=== PATIENT | male | born 1940 | race Caucasian/White ===

== ENCOUNTER 2019-09-06 11:00 | Emergency (ER) | payer MEDICARE, OTHER ==
[~2019-09-06 11:00] MED LIST: Aspirin 81 MG Tab.Chew PO ONE
[2019-09-06] MEDS ORDERED: Aspirin 81 MG Tab.Chew ONE (11:04)
[2019-09-06] MEDS ORDERED: Sodium Chloride 0.9% 10 ML Syringe FLUSH PRN (11:23)
--- NOTE | 2019-09-06 11:35 | EDM.PDOC ---
ED HPI GENERAL MEDICAL PROBLEM - General Chief Complaint: Cardiovascular Problem Stated Complaint: CHEST PAIN Time Seen by Provider: 09/06/19 11:27 Source of Information: Reports: Patient History Limitations: Reports: No Limitations - History of Present Illness INITIAL COMMENTS - FREE TEXT/NARRATIVE: Patient is an 79-year-old gentleman who presents to the emergency department via private vehicle with a complaint of chest pain. Patient states at approximately 330 this morning, he woke with discomfort in chest and upper abdomen. Patient described discomfort as an ache, midsternal and epigastric region. Patient states that the pain has not resolved. However, pain has gradually improved and is almost resolved upon presentation to the ER. Patient states his last meal was supper at approximately 1930 last night. Patient states that he has never had a cardiac catheterization or previous cardiac history. Patient does have hypertension, COPD, and occasional GERD. Patient denies fever, cough or upper respiratory symptoms, nausea, vomiting, diarrhea, headache, shortness of breath out of usual, lower extremity edema, or out of country travel. Onset: Today, Sudden Onset Time: 03:30 Duration: Hour(s): Location: Reports: Chest Quality: Reports: Ache Severity: Mild Improves with: Reports: Other (Spontaneously improving) Context: Reports: Other (While at rest) Associated Symptoms: Reports: No Other Symptoms. 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 Middle Chest Pain Score (Numeric/FACES): 6 - Related Data Allergies Allergy/AdvReac Type Severity Reaction Status Date / Time No Known Allergies Allergy Verified 09/06/19 11:34 Home Meds: Home Meds Aspirin [Adult Low Dose Aspirin EC] 81 mg PO DAILY 04/04/14 [History] Fish Oil/[place]-3 Fatty Acids [Fish Oil] 1 each PO DAILY 04/04/14 [History] Ibuprofen [Motrin Ib] 200 mg PO Q4H PRN 04/04/14 [History] Losartan [Cozaar] 50 mg PO DAILY 04/04/14 [History] Multivit with Minerals/Lutein [Vision Plus Lutein Vitamin] 1 each PO DAILY 04/04 [History] Multivitamin with Minerals [Multiple Vitamin] 1 tab PO DAILY 04/04/14 [History] Albuterol/Ipratropium [DuoNeb 3.0-0.5 MG/3 ML] 3 ml INH Q6H PRN 09/06/19 [ History] Furosemide 20 mg PO DAILY 09/06/19 [History] Omeprazole 20 mg PO DAILY 09/06/19 [History] ED ROS GENERAL - Review of Systems Review Of Systems: Comprehensive ROS is negative, except as noted in HPI. Constitutional: Reports: No Symptoms HEENT: Reports: No Symptoms Respiratory: Reports: No Symptoms Cardiovascular: Reports: Chest Pain Endocrine: Reports: No Symptoms GI/Abdominal: Reports: No Symptoms : Reports: No Symptoms Musculoskeletal: Reports: No Symptoms Skin: Reports: No Symptoms Neurological: Reports: No Symptoms Psychiatric: Reports: No Symptoms Hematologic/Lymphatic: Reports: No Symptoms Immunologic: Reports: No Symptoms ED EXAM, GENERAL - Physical Exam Exam: See Below Exam Limited By: No Limitations General Appearance: Alert, WD/WN, No Apparent Distress Eye Exam: Bilateral Eye: Normal Inspection Nose: Normal Inspection, Normal Mucosa, No Blood Throat/Mouth: Normal Inspection, Normal Oropharynx, No Airway Compromise Head: Atraumatic, Normocephalic Neck: Normal Inspection, Supple, Non-Tender Respiratory/Chest: No Respiratory Distress, Decreased Breath Sounds (Bibasilar) , Wheezing (Minimal end expiratory) Cardiovascular: Normal Peripheral Pulses, Regular Rate, Rhythm, No Murmur GI/Abdominal: Normal Bowel Sounds, Soft, Tender (Epigastric) Back Exam: Normal Inspection. No: CVA Tenderness (L), CVA Tenderness (R) Extremities: Normal Inspection, No Pedal Edema, Normal Capillary Refill Neurological: Alert, Oriented, CN II-XII Intact, Normal Cognition Psychiatric: Normal Affect, Normal Mood Skin Exam: Warm, Dry, Intact, Normal Color, No Rash Lymphatic: No Adenopathy EKG INTERPRETATION EKG Date: 09/06/19 Time: 11:00 Rhythm: NSR Rate (Beats/Min): 94 [place]: Normal P-Wave: Present QRS: Normal ST-T: Normal QT: Normal Comparison: NA - No Prior EKG Course - Vital Signs Last Recorded V/S: Last Vital Signs Temp 98.0 F 09/06/19 11:05 Pulse 98 09/06/19 11:05 Resp 18 09/06/19 11:05 BP 141/55 H 09/06/19 11:05 Pulse Ox 87 L 09/06/19 11:05 - Orders/Labs/Meds Orders: Active Orders 24 hr Category Date Time Status EKG Documentation Completion [RC] ASDIRECTED Care 09/06/19 11:24 Active Oxygen Therapy Adult [Oxygen Therapy] [RC] ASDIRECTED Care 09/06/19 11:47 Ordered Peripheral IV Care [RC] . DIRECTED Care 09/06/19 11:24 Active Aspirin Med 09/07/19 08:00 Active 162 mg PO WITHBREAKFAST Sodium Chloride 0.9% [Saline Flush] Med 09/06/19 11:23 Active 10 ml FLUSH Q8HR PRN Peripheral IV Insertion Adult [OM.PC] Routine Oth 09/06/19 11:23 Ordered EKG 12 Lead [EK] Routine Ther 09/06/19 11:23 Ordered Medication Orders Aspirin (Aspirin) 162 mg PO WITHBREAKFAST [place] Sodium Chloride (Saline Flush) 10 ml FLUSH Q8HR PRN PRN Reason: keep vein open Labs: Laboratory Tests 09/06/19 09/06/19 09/06/19 Range/Units 11:20 11:20 11:20 WBC 10.00 (5.00-10.00) 10^3/uL RBC 4.62 (4.50-6.00) 10^6/uL Hgb 13.8 (13.0-17.0) g/dL Hct 41.3 (40.0-52.0) % MCV 89.4 (82.0-92.0) fL MCH 29.9 (27.0-31.0) pg MCHC 33.4 (32.0-36.0) g/dL RDW 12.8 (11.5-14.5) % Plt Count 136 L (150-400) 10^3/uL MPV 9.2 (7.4-10.4) fL Immature Gran % (Auto) 0.1 (0.0-5.0) % Neut % (Auto) 77.3 H (50.0-70.0) % Lymph % (Auto) 12.2 L (20.0-40.0) % [place] % (Auto) 10.1 H (2.0-8.0) % Eos % (Auto) 0.1 L (1.0-3.0) % Baso % (Auto) 0.2 (0.0-1.0) % Immature Gran # (Auto) 0.01 (0.00-0.50) 10^3/uL Neut # (Auto) 7.73 H (2.50-7.00) 10^3/uL Lymph # (Auto) 1.22 (1.00-4.00) 10^3/uL [place] # (Auto) 1.01 H (0.10-0.80) 10^3/uL Eos # (Auto) 0.01 L (0.10-0.30) 10^3/uL Baso # (Auto) 0.02 (0.00-0.10) 10^3/uL D-Dimer, Quantitative 148 (<400) ng/mL Sodium 131 L (136-145) mmol/L Potassium 4.2 (3.3-5.3) mmol/L Chloride 93 L (98-115) mmol/L Carbon Dioxide 31.0 (21.0-32.0) mmol/L Anion Gap 11.2 (5-15) mmol/L BUN 11 (6-25) mg/dL Creatinine 0.88 (0.51-1.17) mg/dL Est Cr Clr Drug Dosing 64.77 mL/min Estimated GFR (MDRD) > 60 mL/min Glucose 119 H (75 - 99) mg/dL Calcium 9.1 (8.7-10.3) mg/dL Total Bilirubin 1.2 H (0.2-1.0) mg/dL AST 35 (15-37) U/L ALT 35 (12-78) U/L Alkaline Phosphatase 129 H (46-116) IU/L Troponin I 0.04 (0.00-0.070) ng/mL Total Protein 6.9 (6.4-8.2) g/dL Albumin 3.30 (3.00-4.80) g/dL Lipase 88 (73-393) U/L Meds: Medications Generic Name Dose Route Start Last Admin Trade Name Freq PRN Reason Stop Dose Admin Aspirin 162 mg 09/07/19 08:00 Aspirin PO WITHBREAKFAST [place] Sodium Chloride 10 ml 09/06/19 11:23 Saline Flush FLUSH Q8HR PRN keep vein open Discontinued Medications Generic Name Dose Route Start Last Admin Trade Name Freq PRN Reason Stop Dose Admin Aspirin Confirm 09/06/19 11:04 Aspirin Administered 09/06/19 11:05 Dose 162 mg .ROUTE .K-MED ONE - Radiology Interpretation Free Text/Narrative:: Chest x-ray shows cardiomegaly without acute cardiopulmonary process - Re-Assessments/Exams Free Text/Narrative Re-Assessment/Exam: 09/06/19 12:02 Patient afebrile, vital signs stable, chest pain has resolved. Patient informed me that he did take a omeprazole just prior to presentation to the ER. All lab work, chest x-ray, and EKG are normal. Discussed case with Gee Ferraro. Patient will follow-up at [facility] in 1-2 days. Departure - Departure Time of Disposition: 12:03 Disposition: Home, Self-Care 01 Condition: Good Clinical Impression: Atypical chest pain Gastroesophageal reflux disease Qualifiers: Esophagitis presence: esophagitis presence not specified Qualified Code(s): K21.9 - Gastro-esophageal reflux disease without esophagitis Instructions: Nonspecific Chest Pain, [id number], Food Choices for Gastroesophageal Reflux Disease, Adult, [id number], Gastroesophageal Reflux Disease, Adult, [id number] Referrals: Ivelisse Gomez PA-C [Primary Care Provider] - Forms: ED Department Discharge Additional Instructions: Follow-up at [facility] in next 1-2 days. Return to emergency department sooner if symptoms continue or worsen. Take omeprazole as directed. Sepsis Event Note - Focused Exam Vital Signs: Vital Signs Temp Pulse Resp BP Pulse Ox 09/06/19 11:05 98.0 F 98 18 141/55 H 87 L Date Exam was Performed: 09/06/19 Time Exam was Performed: 12:02 - My Orders Last 24 Hours: My Active Orders 09/06/19 11:23 Sodium Chloride 0.9% [Saline Flush] 10 ml FLUSH Q8HR PRN Peripheral IV Insertion Adult [OM.PC] Routine EKG 12 Lead [EK] Routine 09/06/19 11:24 EKG Documentation Completion [RC] ASDIRECTED Peripheral IV Care [RC] . DIRECTED 09/06/19 11:47 Oxygen Therapy Adult [Oxygen Therapy] [RC] ASDIRECTED 09/07/19 08:00 Aspirin 162 mg PO WITHBREAKFAST - Assessment/Plan Last 24 Hours: My Active Orders 09/06/19 11:23 Sodium Chloride 0.9% [Saline Flush] 10 ml FLUSH Q8HR PRN Peripheral IV Insertion Adult [OM.PC] Routine EKG 12 Lead [EK] Routine 09/06/19 11:24 EKG Documentation Completion [RC] ASDIRECTED Peripheral IV Care [RC] . DIRECTED 09/06/19 11:47 Oxygen Therapy Adult [Oxygen Therapy] [RC] ASDIRECTED 09/07/19 08:00 Aspirin 162 mg PO WITHBREAKFAST Assessment:: GERD Plan: Follow-up at [facility]
--- NOTE | 2019-09-06 11:51 | CR ---
[id number] RAD/RAD Chest PA or AP 1V EXAM: RAD Chest PA or AP 1V INDICATION: CHEST PAIN. COMPARISON: None. DISCUSSION: Cardiomediastinal silhouette is borderline enlarged. No infiltrate, effusion, pneumothorax, or edema. Pulmonary hyperinflation. Bibasilar subsegmental atelectasis and/or scarring. IMPRESSION: No acute cardiopulmonary abnormality. Ruddy Herman DO 09/06/19 [id number] Thank you for allowing us to participate in the care of your patient.
[2019-09-06 11:55] LABS: ANION GAP 11.2 mmol/L (5-15); CHLORIDE,CL 93 mmol/L (98-115); SODIUM,NA 131 mmol/L (136-145)
[2019-09-07] MEDS ORDERED: Aspirin 81 MG Tab.Chew PO SCH (08:00)
== END 2019-09-06 12:10 | disposition home or self-care (01) ==
LOC: KA.ED 11:00
DX: K21.9 Gastro-esophageal reflux disease without esophagitis (principal); R07.89 Other chest pain; I10 Essential (primary) hypertension; J44.9 Chronic obstructive pulmonary disease, unspecified; Z79.899 Other long term (current) drug therapy; Z79.82 Long term (current) use of aspirin
CPT/HCPCS: 71045; 80053; 83690; 84484; 85025; 85379; 93005; 99284; 99285-25; A9270-GY

== ENCOUNTER 2021-06-10 10:10 | Inpatient (IN) | payer MEDICARE, OTHER ==
--- NOTE | 2021-06-10 12:18 | CR ---
[id number] RAD/RAD Chest PA And Lateral EXAM: RAD Chest PA And Lateral INDICATION: COUGH,FEVER. COMPARISON: September 2019. DISCUSSION/IMPRESSION: Right lung demonstrates patchy areas of parenchymal opacification in the paramediastinal region of the right upper lobe and at the lung base projecting over the costophrenic sulcus. Additionally, there is interstitial thickening in the right lung base. Findings were not seen on recent prior examination. If there are clinical signs of infection, findings would be consistent with pneumonia. Left lung is clear. Cardiomegaly and central vascular congestion. Suleiman Wilder MD 06/10/21 [id number] Thank you for allowing us to participate in the care of your patient.
[2021-06-10] MEDS ORDERED: Sodium Chloride 0.9% 1,000 ML IV ONE (12:37)
[2021-06-10] MEDS ORDERED: Sodium Chloride 0.9% 1,000 ML IV SCH (12:45)
[2021-06-10] MEDS: cefTRIAXone 2 GM Vial IVPUSH SCH (13:10)
[2021-06-10] MEDS: Sodium Chloride 0.9% 10 ML Syringe FLUSH PRN (13:16)
[2021-06-10] MEDS ORDERED: Albuterol 8 GM Inhaler INH PRN ×2 (15:58→21:48)
[2021-06-10] MEDS ORDERED: ALBUTEROL INH SCH (20:00)
[2021-06-10] MEDS ORDERED: IPRATROPIUM INH SCH (20:00)
[2021-06-10] MEDS: Triamcinolone Acetonide 0.1% Crm 15 GM Tube TOP SCH (21:20)
[2021-06-11] MEDS ORDERED: Menthol 7.6 MG Sugar Free Lozenge PO PRN (02:49)
[2021-06-11 07:57] LABS: ANION GAP 12.5 mmol/L (5-15); CHLORIDE,CL 100 mmol/L (98-107); SODIUM,NA 138 mmol/L (136-145)
[2021-06-11] MEDS: Fish Oil/Omega-3 Fatty Acids 1 Gm Cap PO SCH (08:04)
[2021-06-11] MEDS: OMEPRAZOLE 40 MG PO SCH (08:04)
[2021-06-11] MEDS: Aspirin 81 MG Tab.EC PO SCH (08:04)
[2021-06-11] MEDS: LOSARTAN 100 MG PO SCH (08:04)
[2021-06-11] MEDS: Triamcinolone Acetonide 0.1% Crm 15 GM Tube TOP SCH ×2 (08:05→20:11)
[2021-06-11] MEDS ORDERED: Potassium Chloride 20 MEQ Tab.ER PO ONE (09:23)
[2021-06-11] MEDS ORDERED: Sodium Chloride 0.9% 1,000 ML IV SCH (09:45)
[2021-06-11] MEDS: IPRATROPIUM INH SCH ×2 (10:33→20:11)
[2021-06-11] MEDS: ALBUTEROL INH SCH ×2 (10:33→20:11)
[2021-06-11] MEDS: methylPREDNISolone Sodium Succinate 125 MG/2 ML SDV IVPUSH SCH ×2 (10:33→17:13)
--- NOTE | 2021-06-11 10:33 | PCM.PN ---
- General Info Date of Service: 06/11/21 Functional Status: Reports: Pain Controlled, Tolerating Diet, Ambulating, Urinating, New Symptoms (diarrhea) - Review of Systems General: Reports: Weakness (improved from yesterday). Denies: Fever, Chills HEENT: Reports: No Symptoms Pulmonary: Reports: Shortness of Breath, Cough, Sputum, Wheezing (mild). Denies: Pleuritic Chest Pain, Hemoptysis Cardiovascular: Reports: Orthopnea, Edema Gastrointestinal: Reports: Diarrhea Genitourinary: Reports: No Symptoms Musculoskeletal: Reports: No Symptoms Skin: Reports: No Symptoms Neurological: Reports: No Symptoms Psychiatric: Reports: No Symptoms - Patient Data Vitals - Most Recent: Last Vital Signs Temp 97.1 F 06/11/21 06:19 Pulse 81 06/11/21 06:19 Resp 18 06/11/21 06:19 BP 117/64 06/11/21 06:19 Pulse Ox 92 L 06/11/21 06:19 Weight - Most Recent: 217 lb 4.8 oz I&O - Last 24 Hours: Intake & Output 06/10/21 06/11/21 06/11/21 22:59 06:59 14:59 Intake Total 200 1918 Balance 200 1918 Lab Results Last 24 Hours: Laboratory Results - last 24 hr 06/10/21 06/10/21 06/10/21 Range/Units 10:10 11:15 11:35 WBC (5.00-10.00) 10^3/uL RBC (4.50-6.00) 10^6/uL Hgb (13.0-17.0) g/dL Hct (40.0-52.0) % MCV (82.0-92.0) fL MCH (27.0-31.0) pg MCHC (32.0-36.0) g/dL RDW (11.5-14.5) % Plt Count (150-400) 10^3/uL MPV (7.4-10.4) fL Immature Gran % (Auto) (0.0-5.0) % Neut % (Auto) (50.0-70.0) % Lymph % (Auto) (20.0-40.0) % [place] % (Auto) (2.0-8.0) % Eos % (Auto) (1.0-3.0) % Baso % (Auto) (0.0-1.0) % Neut # (Auto) (2.50-7.00) 10^3/uL Lymph # (Auto) (1.00-4.00) 10^3/uL Lyon # (Auto) (0.10-0.80) 10^3/uL Eos # (Auto) (0.10-0.30) 10^3/uL Baso # (Auto) (0.00-0.10) 10^3/uL Immature Gran # (Auto) (0.00-0.50) 10^3/uL Sodium (136-145) mmol/L Potassium (3.5-5.1) mmol/L Chloride (98-107) mmol/L Carbon Dioxide (21.0-32.0) mmol/L Anion Gap (5-15) mmol/L BUN (7-18) mg/dL Creatinine (0.51-1.17) mg/dL Est Cr Clr Drug Dosing mL/min Estimated GFR (MDRD) mL/min Glucose (70-140) mg/dL Lactic Acid 1.3 (0.4-2.0) mmol/L Calcium (8.7-10.3) mg/dL Total Bilirubin (0.2-1.0) mg/dL AST (15-37) U/L ALT (14-63) U/L Alkaline Phosphatase (46-116) U/L C-Reactive Protein (0.0-0.9) mg/dL B-Natriuretic Peptide (0-100) pg/mL Total Protein (6.4-8.2) g/dL Albumin (3.40-5.00) g/dL Specimen Type Urincc Urine Color Reji H (YELLOW) Urine Appearance Clear (CLEAR) Urine pH 5.5 (5.0-9.0) Ur Specific [place] 1.020 (1.005-1.030) Urine Protein 100 H (NEGATIVE) mg/dL Urine Glucose (UA) Negative (NEGATIVE) mg/dL Urine Ketones Negative (NEGATIVE) mg/dL Urine Occult Blood Trace-intact H (NEGATIVE) Urine Nitrite Negative (NEGATIVE) Urine Bilirubin Moderate H (NEGATIVE) Urine Urobilinogen >=8.0 H (0.2-1.0) E.U./dL Ur Leukocyte Esterase Negative (NEGATIVE) Urine RBC Not seen (0-5) /HPF Urine WBC 0-5 (0-5) /HPF Ur Epithelial Cells Few /LPF Urine Bacteria Few (NONE TO FEW) /HPF SARS CoV-2 RNA Rapid YAMILET Negative (NEGATIVE) 06/10/21 06/11/21 06/11/21 Range/Units 11:35 07:00 07:00 WBC 10.75 H (5.00-10.00) 10^3/uL RBC 4.51 (4.50-6.00) 10^6/uL Hgb 13.7 (13.0-17.0) g/dL Hct 42.0 (40.0-52.0) % MCV 93.1 H D (82.0-92.0) fL MCH 30.4 (27.0-31.0) pg MCHC 32.6 (32.0-36.0) g/dL RDW 13.1 (11.5-14.5) % Plt Count 122 L (150-400) 10^3/uL MPV 9.6 (7.4-10.4) fL Immature Gran % (Auto) 0.5 (0.0-5.0) % Neut % (Auto) 82.3 H (50.0-70.0) % Lymph % (Auto) 9.0 L (20.0-40.0) % Lyon % (Auto) 7.8 (2.0-8.0) % Eos % (Auto) 0.3 L (1.0-3.0) % Baso % (Auto) 0.1 (0.0-1.0) % Neut # (Auto) 8.85 H (2.50-7.00) 10^3/uL Lymph # (Auto) 0.97 L (1.00-4.00) 10^3/uL Lyon # (Auto) 0.84 H (0.10-0.80) 10^3/uL Eos # (Auto) 0.03 L (0.10-0.30) 10^3/uL Baso # (Auto) 0.01 (0.00-0.10) 10^3/uL Immature Gran # (Auto) 0.05 (0.00-0.50) 10^3/uL Sodium 138 (136-145) mmol/L Potassium 3.3 L (3.5-5.1) mmol/L Chloride 100 (98-107) mmol/L Carbon Dioxide 28.8 (21.0-32.0) mmol/L Anion Gap 12.5 (5-15) mmol/L BUN 15 (7-18) mg/dL Creatinine 0.84 (0.51-1.17) mg/dL Est Cr Clr Drug Dosing 66.73 mL/min Estimated GFR (MDRD) > 60 mL/min Glucose 99 (70-140) mg/dL Lactic Acid (0.4-2.0) mmol/L Calcium 8.4 L (8.7-10.3) mg/dL Total Bilirubin 3.0 H (0.2-1.0) mg/dL AST 24 (15-37) U/L ALT 38 (14-63) U/L Alkaline Phosphatase 142 H (46-116) U/L C-Reactive Protein > 11.0 H > 11.0 H (0.0-0.9) mg/dL B-Natriuretic Peptide 165 H (0-100) pg/mL Total Protein 6.8 (6.4-8.2) g/dL Albumin 1.95 L (3.40-5.00) g/dL Specimen Type Urine Color (YELLOW) Urine Appearance (CLEAR) Urine pH (5.0-9.0) Ur Specific [place] (1.005-1.030) Urine Protein (NEGATIVE) mg/dL Urine Glucose (UA) (NEGATIVE) mg/dL Urine Ketones (NEGATIVE) mg/dL Urine Occult Blood (NEGATIVE) Urine Nitrite (NEGATIVE) Urine Bilirubin (NEGATIVE) Urine Urobilinogen (0.2-1.0) E.U./dL Ur Leukocyte Esterase (NEGATIVE) Urine RBC (0-5) /HPF Urine WBC (0-5) /HPF Ur Epithelial Cells /LPF Urine Bacteria (NONE TO FEW) /HPF SARS CoV-2 RNA Rapid YAMILET (NEGATIVE) Med Orders - Current: Current Medications Albuterol (Albuterol 8 Gm Inhaler) 0 gm INH Q4H PRN PRN Reason: Shortness of Breath Albuterol/Ipratropium (Albuterol/Ipratropium 3.0-0.5 Mg/3 Ml Neb Soln - Ptom) 3 ml INH BID [place] Aspirin (Aspirin 81 Mg Tab.Ec) 81 mg PO DAILY [facility] Last Admin: 06/11/21 08:04 Dose: 81 mg Documented by: Ceftriaxone Sodium (Ceftriaxone 2 Gm Vial) 2 gm IVPUSH Q24H [facility] Last Admin: 06/10/21 13:10 Dose: 2 gm Documented by: Fish Oil (Fish Oil/[place]-3 Fatty Acids 1 Gm Cap) 1 gm PO DAILY [facility] Last Admin: 06/11/21 08:04 Dose: 1 gm Documented by: Vancomycin HCl 1.25 gm/ Sodium (Chloride) 250 mls @ 125 mls/hr IV Q12H [facility] Last Admin: 06/10/21 23:32 Dose: 125 mls/hr Documented by: Sodium Chloride (Normal Saline) 1,000 mls @ 50 mls/hr IV ASDIRECTED [facility] Menthol (Menthol 7.6 Mg Sugar Free Lozenge) 1 kiko PO ASDIRECTED PRN PRN Reason: Cough Methylprednisolone Sodium Succinate (Methylprednisolone Sodium Succinate 125 Mg/2 Ml Sdv) 40 mg IVPUSH Q8H [facility] Losartan 100mg (Tablet - Ptom) 1 each PO DAILY [facility] Last Admin: 06/11/21 08:04 Dose: 1 each Documented by: Omeprazole 40mg (Capsule - Ptom) 1 each PO ACBREAKFAST [facility] Last Admin: 06/11/21 08:04 Dose: 1 each Documented by: Sodium Chloride (Sodium Chloride 0.9% 10 Ml Syringe) 10 ml FLUSH Q8HR PRN PRN Reason: keep vein open Last Admin: 06/10/21 13:16 Dose: 10 ml Documented by: Triamcinolone Acetonide (Triamcinolone Acetonide 0.1% Crm 15 Gm Tube) 0 gm TOP BID [facility] Last Admin: 06/11/21 08:05 Dose: 1 applic Documented by: Vancomycin HCl (Pharmacy To Dose - Vancomycin) 1 dose .XX ASDIRECTED [facility] Discontinued Medications Albuterol (Albuterol 8 Gm Inhaler) 0 gm INH Q6H PRN PRN Reason: Shortness of Breath Albuterol/Ipratropium (Albuterol/Ipratropium 3.0-0.5 Mg/3 Ml Neb Soln - Ptom) 3 ml INH BIDRT [facility] Last Admin: 06/10/21 19:35 Dose: 3 ml Documented by: Sodium Chloride (Normal Saline) 1,000 mls @ 999 mls/hr IV .BOLUS ONE Stop: 06/10/21 13:37 Last Infusion: 06/10/21 16:30 Dose: 100 mls/hr Documented by: Sodium Chloride (Normal Saline) 1,000 mls @ 100 mls/hr IV ASDIRECTED [place] Last Admin: 06/10/21 23:38 Dose: 100 mls/hr Documented by: Potassium Chloride (Potassium Chloride 20 Meq Tab.Er) 20 meq PO ONETIME ONE Stop: 06/11/21 09:24 - Exam Quality Assessment: Supplemental Oxygen General: Alert, Oriented, Cooperative, No Acute Distress HEENT: Pupils Equal, Pupils Reactive, Mucous Membr. Moist/[place] Neck: Supple, Trachea Midline Lungs: Decreased Breath Sounds, Wheezing. No: Crackles, Rhonchi Cardiovascular: Regular Rate, Regular Rhythm, No Murmurs GI/Abdominal Exam: Normal Bowel Sounds, Soft, Non-Tender, No Distention (Male) Exam: Deferred Back Exam: Normal Inspection, Full Range of Motion Extremities: Normal Inspection, Normal Range of Motion, Non-Tender, Normal Capillary Refill, Pedal Edema (+1 to +2 bilaterally ) Peripheral Pulses: 2+: Dorsalis Pedis (L), Dorsalis Pedis (R) Skin: Warm, Dry, Intact Neurological: No New Focal Deficit Psy/Mental Status: Alert, Normal Affect, Normal Mood - Patient Data Lab Results Last 24 hrs: Laboratory Results - last 24 hr 06/10/21 06/10/21 06/10/21 Range/Units 10:10 11:15 11:35 WBC (5.00-10.00) 10^3/uL RBC (4.50-6.00) 10^6/uL Hgb (13.0-17.0) g/dL Hct (40.0-52.0) % MCV (82.0-92.0) fL MCH (27.0-31.0) pg MCHC (32.0-36.0) g/dL RDW (11.5-14.5) % Plt Count (150-400) 10^3/uL MPV (7.4-10.4) fL Immature Gran % (Auto) (0.0-5.0) % Neut % (Auto) (50.0-70.0) % Lymph % (Auto) (20.0-40.0) % [place] % (Auto) (2.0-8.0) % Eos % (Auto) (1.0-3.0) % Baso % (Auto) (0.0-1.0) % Neut # (Auto) (2.50-7.00) 10^3/uL Lymph # (Auto) (1.00-4.00) 10^3/uL Lyon # (Auto) (0.10-0.80) 10^3/uL Eos # (Auto) (0.10-0.30) 10^3/uL Baso # (Auto) (0.00-0.10) 10^3/uL Immature Gran # (Auto) (0.00-0.50) 10^3/uL Sodium (136-145) mmol/L Potassium (3.5-5.1) mmol/L Chloride (98-107) mmol/L Carbon Dioxide (21.0-32.0) mmol/L Anion Gap (5-15) mmol/L BUN (7-18) mg/dL Creatinine (0.51-1.17) mg/dL Est Cr Clr Drug Dosing mL/min Estimated GFR (MDRD) mL/min Glucose (70-140) mg/dL Lactic Acid 1.3 (0.4-2.0) mmol/L Calcium (8.7-10.3) mg/dL Total Bilirubin (0.2-1.0) mg/dL AST (15-37) U/L ALT (14-63) U/L Alkaline Phosphatase (46-116) U/L C-Reactive Protein (0.0-0.9) mg/dL B-Natriuretic Peptide (0-100) pg/mL Total Protein (6.4-8.2) g/dL Albumin (3.40-5.00) g/dL Specimen Type Urincc Urine Color Reji H (YELLOW) Urine Appearance Clear (CLEAR) Urine pH 5.5 (5.0-9.0) Ur Specific [place] 1.020 (1.005-1.030) Urine Protein 100 H (NEGATIVE) mg/dL Urine Glucose (UA) Negative (NEGATIVE) mg/dL Urine Ketones Negative (NEGATIVE) mg/dL Urine Occult Blood Trace-intact H (NEGATIVE) Urine Nitrite Negative (NEGATIVE) Urine Bilirubin Moderate H (NEGATIVE) Urine Urobilinogen >=8.0 H (0.2-1.0) E.U./dL Ur Leukocyte Esterase Negative (NEGATIVE) Urine RBC Not seen (0-5) /HPF Urine WBC 0-5 (0-5) /HPF Ur Epithelial Cells Few /LPF Urine Bacteria Few (NONE TO FEW) /HPF SARS CoV-2 RNA Rapid YAMILET Negative (NEGATIVE) 06/10/21 06/11/21 06/11/21 Range/Units 11:35 07:00 07:00 WBC 10.75 H (5.00-10.00) 10^3/uL RBC 4.51 (4.50-6.00) 10^6/uL Hgb 13.7 (13.0-17.0) g/dL Hct 42.0 (40.0-52.0) % MCV 93.1 H D (82.0-92.0) fL MCH 30.4 (27.0-31.0) pg MCHC 32.6 (32.0-36.0) g/dL RDW 13.1 (11.5-14.5) % Plt Count 122 L (150-400) 10^3/uL MPV 9.6 (7.4-10.4) fL Immature Gran % (Auto) 0.5 (0.0-5.0) % Neut % (Auto) 82.3 H (50.0-70.0) % Lymph % (Auto) 9.0 L (20.0-40.0) % Lyon % (Auto) 7.8 (2.0-8.0) % Eos % (Auto) 0.3 L (1.0-3.0) % Baso % (Auto) 0.1 (0.0-1.0) % Neut # (Auto) 8.85 H (2.50-7.00) 10^3/uL Lymph # (Auto) 0.97 L (1.00-4.00) 10^3/uL Lyon # (Auto) 0.84 H (0.10-0.80) 10^3/uL Eos # (Auto) 0.03 L (0.10-0.30) 10^3/uL Baso # (Auto) 0.01 (0.00-0.10) 10^3/uL Immature Gran # (Auto) 0.05 (0.00-0.50) 10^3/uL Sodium 138 (136-145) mmol/L Potassium 3.3 L (3.5-5.1) mmol/L Chloride 100 (98-107) mmol/L Carbon Dioxide 28.8 (21.0-32.0) mmol/L Anion Gap 12.5 (5-15) mmol/L BUN 15 (7-18) mg/dL Creatinine 0.84 (0.51-1.17) mg/dL Est Cr Clr Drug Dosing 66.73 mL/min Estimated GFR (MDRD) > 60 mL/min Glucose 99 (70-140) mg/dL Lactic Acid (0.4-2.0) mmol/L Calcium 8.4 L (8.7-10.3) mg/dL Total Bilirubin 3.0 H (0.2-1.0) mg/dL AST 24 (15-37) U/L ALT 38 (14-63) U/L Alkaline Phosphatase 142 H (46-116) U/L C-Reactive Protein > 11.0 H > 11.0 H (0.0-0.9) mg/dL B-Natriuretic Peptide 165 H (0-100) pg/mL Total Protein 6.8 (6.4-8.2) g/dL Albumin 1.95 L (3.40-5.00) g/dL Specimen Type Urine Color (YELLOW) Urine Appearance (CLEAR) Urine pH (5.0-9.0) Ur Specific [place] (1.005-1.030) Urine Protein (NEGATIVE) mg/dL Urine Glucose (UA) (NEGATIVE) mg/dL Urine Ketones (NEGATIVE) mg/dL Urine Occult Blood (NEGATIVE) Urine Nitrite (NEGATIVE) Urine Bilirubin (NEGATIVE) Urine Urobilinogen (0.2-1.0) E.U./dL Ur Leukocyte Esterase (NEGATIVE) Urine RBC (0-5) /HPF Urine WBC (0-5) /HPF Ur Epithelial Cells /LPF Urine Bacteria (NONE TO FEW) /HPF SARS CoV-2 RNA Rapid YAMILET (NEGATIVE) Result Diagrams: 06/11/21 07:00 06/11/21 07:00 Sepsis Event Note - Evaluation Sepsis Screening Result: No Definite Risk - Focused Exam Vital Signs: Vital Signs Temp Pulse Resp BP Pulse Ox 06/11/21 06:19 97.1 F 81 18 117/64 92 L 06/10/21 22:43 97.7 F 86 20 130/57 L 93 L - Problem List Review Problem List Initiated/Reviewed/Updated: Yes - My Orders Last 24 Hours: My Active Orders 06/10/21 15:32 Admission Status [Patient Status] [ADT] Routine 06/10/21 21:00 Triamcinolone Acetonide [Triamcinolone Acetonide 0.1% Crm] 0 gm TOP BID 06/11/21 02:49 Menthol [[place] Sugar Free] 1 kiko PO ASDIRECTED PRN 06/11/21 05:30 Code Status [Resuscitation Status] Routine 06/11/21 07:30 Patient's Own Medication [Ptom] 1 each PO ACBREAKFAST 06/11/21 09:00 Albuterol/Ipratropium [DuoNeb 3.0-0.5 MG/3 ML] 3 ml INH BID Aspirin [Halfprin] 81 mg PO DAILY Fish Oil/[place]-3 Fatty Acids [Fish Oil] 1 gm PO DAILY Patient's Own Medication [Ptom] 1 each PO DAILY 06/11/21 09:23 Dietary Supplements [RC] WITHMEALSANDBED 06/11/21 09:30 methylPREDNISolone Sod Succ [Solu-MEDROL] 40 mg IVPUSH Q8H 06/11/21 09:45 Sodium Chloride 0.9% [Normal Saline] 1,000 ml IV ASDIRECTED 06/12/21 05:11 CBC WITH AUTO DIFF [HEME] AM CMP [COMPREHENSIVE METABOLIC PN,CMP] [CHEM] AM CRP [C-REACTIVE PROTEIN] [CHEM] AM 06/12/21 12:00 VANCOMYCIN TROUGH [CHEM] Routine - Plan Plan:: HPI summary: Mt is an 80yM patient who was seen in the [facility] by Dr Goode yesterday for c/o SOB,"dark"urine and generalized weakness. Per , patient had not been himself since the last 4 to 5 days. She noticed the patient seemed confused at times. Patient noticed his urine was dark on Thursday and had 2 episodes of incontinence. Temperature at home was normal. Patient has a history of COPD and has some SOB but has worsening shortness of breath since the last 4 to 5 days. Patient reports generalized weakness since that time. Patient has a chronic cough and has been bringing up white phlegm. Patient's reports that he has not consumed a beer since last 06/05/2021. Patient denies chest pain, palpitations, lightheadedness, nausea, vomiting, abdominal pain, diarrhea, dysuria, frequency, urgency. WBC was found to be elevated at 15.9 with neutrophilia. BP 100/66, HR 112, Temp 100 in clinic. Patient admitted under observation status initially for further workup including CXR, BC x 2, lactic acid, sputum culture and UA. Patient started on broad spectrum antibiotics of vancomycin and rocephin. CXR indicated cardiomegaly with central vascular congestion. R lung with patchy areas of parenchymal opacification, interstitial thickening of the R lung base suggestive of pneumonia. Lactic acid 1.3. UA indicated reji urine, protein > 100, moderate urinary bilirubin and > 8.0 urobilinogen. BNP 165. CRP > 11.0. Hospital course: 06/11/21: Patient reports he is feeling somewhat better this morning, he is not as weak and short of breath. He reports diarrhea this morning x 1. Patient states he was feeling SOB, particularly with activity the past few days. He has to elevate HOB to improve his breathing at home at baseline. He also has edema to his bilateral lower extremities. Lung sounds diminished with end expiratory wheeze. Regular heart rate and rhythm, no murmur appreciated. Bowel sounds +, abdomen soft, non-tender. +1 to +2 edema to BLE. Hemodynamically stable, afebrile, 92% on 2L. WBC 10.75 today (N 82.3%), Hgb 13.7, Plt 122. Na 138, K 3.3, BUN 15, Creatinine 0.85, Bili 3.0, Alk phos 142, CRP > 11.0, Albumin 1.95. BC x 2 pending. Will continue IV antibiotics while cultures are pending and plan to de-escalate treatment as clinically indicated. No echo on file, recommend echo on outpatient basis to evaluate for possible CHF due to central vascular congestion on CXR, mild elevation of BNP, SOB with exertion, orthopnea and edema of bilateral lower extremities. Hospitalization problems and plan: # Pneumonia # Leukocytosis with neutrophilia, WBC improved to 10.75 today - Continue vancomycin IV BID per pharmacy dosing - Continue rocephin IV daily - BC x 2 pending - Sputum culture pending - Repeat CBC in am # COPD # Elevated CRP, > 11.0 - Continue duonebs BID, albuterol inhaler PRN - Start solumedrol 40mg IV Q8H - PO steroid taper upon DC home - Incentive spirometry 10x/hr while awake - Repeat CRP in am # Hypokalemia, mild. 3.3 today - K-Dur 20mEq PO today - Repeat CMP in am # Hypoalbuminemia, albumin 1.95 - Start dietary protein supplements Chronic, stable conditions: # HTN - continue losartan 100mg PO daily (Hold for BP < 100/60) # HLD - takes omega 3 1000mg PO daily # Prostate CA # BPH with nocturia # GERD - takes omeprazole 40mg PO daily # Erectile dysfunction Hospitalization details: # FEN: NS decreased to 50ml/hr today, K 3.3 - replace PO, regular diet # PPX: Ambulating, continue PPI # Code status: FULL CODE # Emergency contact: , Marie [phone] # Disposition: Patient status changed from observation to inpatient status the afternoon of admission due to anticipated hospitalization of > 2 midnights for treatment of hospital problems. Will maintain inpatient status for treatment of pneumonia with IV antibiotics while BC pending. - Echocardiogram on outpatient basis to evaluate for CHF
[2021-06-11] MEDS: cefTRIAXone 2 GM Vial IVPUSH SCH (10:34)
[2021-06-11] MEDS ORDERED: Albuterol/Ipratropium 3.0-0.5 MG/3 ML Neb Soln ONE (20:03)
[2021-06-12] MEDS: methylPREDNISolone Sodium Succinate 125 MG/2 ML SDV IVPUSH SCH ×3 (02:08→17:29)
[2021-06-12] MEDS: Sodium Chloride 0.9% 10 ML Syringe FLUSH PRN (02:09)
[2021-06-12] MEDS: OMEPRAZOLE 40 MG PO SCH ×2 (06:14→06:29)
[2021-06-12] MEDS: LOSARTAN 100 MG PO SCH (08:05)
[2021-06-12] MEDS: Fish Oil/Omega-3 Fatty Acids 1 Gm Cap PO SCH (08:05)
[2021-06-12] MEDS: Aspirin 81 MG Tab.EC PO SCH (08:05)
[2021-06-12] MEDS: Triamcinolone Acetonide 0.1% Crm 15 GM Tube TOP SCH ×2 (08:06→20:19)
[2021-06-12 08:23] LABS: ANION GAP 11.6 mmol/L (5-15); CHLORIDE,CL 102 mmol/L (98-107); SODIUM,NA 138 mmol/L (136-145)
[2021-06-12] MEDS: ALBUTEROL INH SCH (08:47)
[2021-06-12] MEDS: IPRATROPIUM INH SCH (08:47)
--- NOTE | 2021-06-12 09:14 | PCM.PN ---
- General Info Date of Service: 06/12/21 Functional Status: Reports: Pain Controlled, Tolerating Diet, Ambulating, Urinating, Incentive Spirometry (750ml). Denies: New Symptoms - Review of Systems General: Reports: No Symptoms HEENT: Reports: No Symptoms Pulmonary: Reports: Shortness of Breath, Cough, Wheezing. Denies: Sputum Cardiovascular: Reports: Dyspnea on Exertion, Orthopnea, Edema Gastrointestinal: Reports: No Symptoms. Denies: Diarrhea Genitourinary: Reports: No Symptoms Musculoskeletal: Reports: No Symptoms Skin: Reports: No Symptoms Neurological: Reports: No Symptoms Psychiatric: Reports: No Symptoms - Patient Data Vitals - Most Recent: Last Vital Signs Temp 97.0 F 06/12/21 06:27 Pulse 83 06/12/21 06:27 Resp 20 06/12/21 06:27 BP 138/75 06/12/21 06:27 Pulse Ox 94 L 06/12/21 06:27 Weight - Most Recent: 217 lb 4.8 oz I&O - Last 24 Hours: Intake & Output 06/11/21 06/12/21 06/12/21 22:59 06:59 14:59 Intake Total 1285 950 Output Total 200 Balance 1285 750 Lab Results Last 24 Hours: Laboratory Results - last 24 hr 06/12/21 06/12/21 Range/Units 07:05 07:05 WBC 6.91 (5.00-10.00) 10^3/uL RBC 4.55 (4.50-6.00) 10^6/uL Hgb 13.7 (13.0-17.0) g/dL Hct 42.4 (40.0-52.0) % MCV 93.2 H (82.0-92.0) fL MCH 30.1 (27.0-31.0) pg MCHC 32.3 (32.0-36.0) g/dL RDW 13.0 (11.5-14.5) % Plt Count 149 L (150-400) 10^3/uL MPV 9.8 (7.4-10.4) fL Immature Gran % (Auto) 1.4 (0.0-5.0) % Neut % (Auto) 86.5 H (50.0-70.0) % Lymph % (Auto) 7.1 L (20.0-40.0) % Crowley % (Auto) 4.9 (2.0-8.0) % Eos % (Auto) 0.0 L (1.0-3.0) % Baso % (Auto) 0.1 (0.0-1.0) % Neut # (Auto) 5.97 (2.50-7.00) 10^3/uL Lymph # (Auto) 0.49 L (1.00-4.00) 10^3/uL Crowley # (Auto) 0.34 (0.10-0.80) 10^3/uL Eos # (Auto) 0.00 L (0.10-0.30) 10^3/uL Baso # (Auto) 0.01 (0.00-0.10) 10^3/uL Immature Gran # (Auto) 0.10 (0.00-0.50) 10^3/uL Sodium 138 (136-145) mmol/L Potassium 4.2 (3.5-5.1) mmol/L Chloride 102 (98-107) mmol/L Carbon Dioxide 28.6 (21.0-32.0) mmol/L Anion Gap 11.6 (5-15) mmol/L BUN 14 (7-18) mg/dL Creatinine 0.85 (0.51-1.17) mg/dL Est Cr Clr Drug Dosing 65.94 mL/min Estimated GFR (MDRD) > 60 mL/min Glucose 152 H (70-140) mg/dL Calcium 8.5 L (8.7-10.3) mg/dL Total Bilirubin 1.2 H (0.2-1.0) mg/dL AST 31 (15-37) U/L ALT 48 (14-63) U/L Alkaline Phosphatase 143 H (46-116) U/L C-Reactive Protein 42.9 H (0.0-0.9) mg/dL Total Protein 6.7 (6.4-8.2) g/dL Albumin 2.01 L (3.40-5.00) g/dL Giorgi Results Last 24 Hours: Microbiology 06/10/21 16:40 Gram Stain - Final Sputum - Expectorated 06/10/21 11:50 Aerobic Blood Culture - Preliminary Blood - Venous - Lab Draw NO GROWTH AFTER 1 DAY Anaerobic Blood Culture - Preliminary NO GROWTH AFTER 1 DAY 06/10/21 11:35 Aerobic Blood Culture - Preliminary Blood - Venous NO GROWTH AFTER 1 DAY Anaerobic Blood Culture - Preliminary NO GROWTH AFTER 1 DAY Med Orders - Current: Current Medications Albuterol (Albuterol 8 Gm Inhaler) 0 gm INH Q4H PRN PRN Reason: Shortness of Breath Albuterol/Ipratropium (Albuterol/Ipratropium 3.0-0.5 Mg/3 Ml Neb Soln - Ptom) 3 ml INH BID [facility] Last Admin: 06/12/21 08:47 Dose: 3 ml Documented by: Aspirin (Aspirin 81 Mg Tab.Ec) 81 mg PO DAILY [facility] Last Admin: 06/12/21 08:05 Dose: 81 mg Documented by: Ceftriaxone Sodium (Ceftriaxone 2 Gm Vial) 2 gm IVPUSH Q24H [facility] Last Admin: 06/11/21 10:34 Dose: 2 gm Documented by: Fish Oil (Fish Oil/[place]-3 Fatty Acids 1 Gm Cap) 1 gm PO DAILY [facility] Last Admin: 06/12/21 08:05 Dose: 1 gm Documented by: Vancomycin HCl 1.25 gm/ Sodium (Chloride) 250 mls @ 125 mls/hr IV Q12H [facility] Last Admin: 06/11/21 23:42 Dose: 125 mls/hr Documented by: Menthol (Menthol 7.6 Mg Sugar Free Lozenge) 1 kiko PO ASDIRECTED PRN PRN Reason: Cough Methylprednisolone Sodium Succinate (Methylprednisolone Sodium Succinate 125 Mg/2 Ml Sdv) 40 mg IVPUSH Q8H [facility] Last Admin: 06/12/21 08:47 Dose: 40 mg Documented by: Losartan 100mg (Tablet - Ptom) 1 each PO DAILY [facility] Last Admin: 06/12/21 08:05 Dose: 1 each Documented by: Omeprazole 40mg (Capsule - Ptom) 1 each PO ACBREAKFAST [facility] Last Admin: 06/12/21 06:29 Dose: Not Given Documented by: Sodium Chloride (Sodium Chloride 0.9% 10 Ml Syringe) 10 ml FLUSH Q8HR PRN PRN Reason: keep vein open Last Admin: 06/12/21 02:09 Dose: 10 ml Documented by: Triamcinolone Acetonide (Triamcinolone Acetonide 0.1% Crm 15 Gm Tube) 0 gm TOP BID [facility] Last Admin: 06/12/21 08:06 Dose: 1 applic Documented by: Vancomycin HCl (Pharmacy To Dose - Vancomycin) 1 dose .XX ASDIRECTED [facility] Discontinued Medications Albuterol (Albuterol 8 Gm Inhaler) 0 gm INH Q6H PRN PRN Reason: Shortness of Breath Albuterol/Ipratropium (Albuterol/Ipratropium 3.0-0.5 Mg/3 Ml Neb Soln - Ptom) 3 ml INH BIDRT [facility] Last Admin: 06/10/21 19:35 Dose: 3 ml Documented by: Albuterol/Ipratropium (Albuterol/Ipratropium 3.0-0.5 Mg/3 Ml Neb Soln) Confirm Administered Dose 3 ml .ROUTE .STK-MED ONE Stop: 06/11/21 20:04 Last Admin: 06/11/21 20:15 Dose: Not Given Documented by: Sodium Chloride (Normal Saline) 1,000 mls @ 999 mls/hr IV .BOLUS ONE Stop: 06/10/21 13:37 Last Infusion: 06/10/21 16:30 Dose: 100 mls/hr Documented by: Sodium Chloride (Normal Saline) 1,000 mls @ 100 mls/hr IV ASDIRECTED [facility] Last Admin: 06/10/21 23:38 Dose: 100 mls/hr Documented by: Sodium Chloride (Normal Saline) 1,000 mls @ 50 mls/hr IV ASDIRECTED [facility] Last Admin: 06/11/21 18:25 Dose: 50 mls/hr Documented by: Potassium Chloride (Potassium Chloride 20 Meq Tab.Er) 20 meq PO ONETIME ONE Stop: 06/11/21 09:24 Last Admin: 06/11/21 10:32 Dose: 20 meq Documented by: - Exam Quality Assessment: Supplemental Oxygen (2L) General: Alert, Oriented, Cooperative, No Acute Distress HEENT: Pupils Equal, Pupils Reactive, Mucous Membr. Moist/[place] Neck: Supple, Trachea Midline Lungs: Decreased Breath Sounds, Rhonchi, Wheezing. No: Crackles Cardiovascular: Regular Rate, Regular Rhythm, No Murmurs GI/Abdominal Exam: Normal Bowel Sounds, Soft, Non-Tender, No Distention (Male) Exam: Deferred Back Exam: Normal Inspection, Full Range of Motion Extremities: Normal Inspection, Normal Range of Motion, Non-Tender, Normal Capillary Refill, Pedal Edema (1-2+ bilaterally) Peripheral Pulses: 2+: Dorsalis Pedis (L), Dorsalis Pedis (R) Skin: Warm, Dry, Intact Neurological: No New Focal Deficit Psy/Mental Status: Alert, Normal Affect, Normal Mood - Patient Data Lab Results Last 24 hrs: Laboratory Results - last 24 hr 06/12/21 06/12/21 Range/Units 07:05 07:05 WBC 6.91 (5.00-10.00) 10^3/uL RBC 4.55 (4.50-6.00) 10^6/uL Hgb 13.7 (13.0-17.0) g/dL Hct 42.4 (40.0-52.0) % MCV 93.2 H (82.0-92.0) fL MCH 30.1 (27.0-31.0) pg MCHC 32.3 (32.0-36.0) g/dL RDW 13.0 (11.5-14.5) % Plt Count 149 L (150-400) 10^3/uL MPV 9.8 (7.4-10.4) fL Immature Gran % (Auto) 1.4 (0.0-5.0) % Neut % (Auto) 86.5 H (50.0-70.0) % Lymph % (Auto) 7.1 L (20.0-40.0) % Crowley % (Auto) 4.9 (2.0-8.0) % Eos % (Auto) 0.0 L (1.0-3.0) % Baso % (Auto) 0.1 (0.0-1.0) % Neut # (Auto) 5.97 (2.50-7.00) 10^3/uL Lymph # (Auto) 0.49 L (1.00-4.00) 10^3/uL [place] # (Auto) 0.34 (0.10-0.80) 10^3/uL Eos # (Auto) 0.00 L (0.10-0.30) 10^3/uL Baso # (Auto) 0.01 (0.00-0.10) 10^3/uL Immature Gran # (Auto) 0.10 (0.00-0.50) 10^3/uL Sodium 138 (136-145) mmol/L Potassium 4.2 (3.5-5.1) mmol/L Chloride 102 (98-107) mmol/L Carbon Dioxide 28.6 (21.0-32.0) mmol/L Anion Gap 11.6 (5-15) mmol/L BUN 14 (7-18) mg/dL Creatinine 0.85 (0.51-1.17) mg/dL Est Cr Clr Drug Dosing 65.94 mL/min Estimated GFR (MDRD) > 60 mL/min Glucose 152 H (70-140) mg/dL Calcium 8.5 L (8.7-10.3) mg/dL Total Bilirubin 1.2 H (0.2-1.0) mg/dL AST 31 (15-37) U/L ALT 48 (14-63) U/L Alkaline Phosphatase 143 H (46-116) U/L C-Reactive Protein 42.9 H (0.0-0.9) mg/dL Total Protein 6.7 (6.4-8.2) g/dL Albumin 2.01 L (3.40-5.00) g/dL Result Diagrams: 06/12/21 07:05 06/12/21 07:05 Giorgi Results Last 24 hrs: Microbiology 06/10/21 16:40 Gram Stain - Final Sputum - Expectorated 06/10/21 11:50 Aerobic Blood Culture - Preliminary Blood - Venous - Lab Draw NO GROWTH AFTER 1 DAY Anaerobic Blood Culture - Preliminary NO GROWTH AFTER 1 DAY 06/10/21 11:35 Aerobic Blood Culture - Preliminary Blood - Venous NO GROWTH AFTER 1 DAY Anaerobic Blood Culture - Preliminary NO GROWTH AFTER 1 DAY Sepsis Event Note - Evaluation Sepsis Screening Result: No Definite Risk - Focused Exam Vital Signs: Vital Signs Temp Pulse Resp BP Pulse Ox 06/12/21 06:27 97.0 F 83 20 138/75 94 L 06/11/21 22:25 97.0 F 90 20 144/72 H 92 L - Problem List Review Problem List Initiated/Reviewed/Updated: Yes - My Orders Last 24 Hours: My Active Orders 06/11/21 09:00 Albuterol/Ipratropium [DuoNeb 3.0-0.5 MG/3 ML] 3 ml INH BID Aspirin [Halfprin] 81 mg PO DAILY Fish Oil/[place]-3 Fatty Acids [Fish Oil] 1 gm PO DAILY Patient's Own Medication [Ptom] 1 each PO DAILY 06/11/21 09:23 Dietary Supplements [RC] WITHMEALSANDBED 06/11/21 09:30 methylPREDNISolone Sod Succ [Solu-MEDROL] 40 mg IVPUSH Q8H 06/11/21 10:33 Incentive Spirometry [RT Incentive Spirometry] [RC] Q1HWA 06/12/21 12:00 VANCOMYCIN TROUGH [CHEM] Routine - Plan Plan:: HPI summary: Mt is an 80yM patient who was seen in the [facility] by Dr Goode yesterday for c/o SOB,"dark"urine and generalized weakness. Per , patient had not been himself since the last 4 to 5 days. She noticed the patient seemed confused at times. Patient noticed his urine was dark on Thursday and had 2 episodes of incontinence. Temperature at home was normal. Patient has a history of COPD and has some SOB but has worsening shortness of breath since the last 4 to 5 days. Patient reports generalized weakness since that time. Patient has a chronic cough and has been bringing up white phlegm. Patient's reports that he has not consumed a beer since last 06/05/2021. Patient denies chest pain, palpitations, lightheadedness, nausea, vomiting, abdominal pain, diarrhea, dysuria, frequency, urgency. WBC was found to be elevated at 15.9 with neutrophilia. BP 100/66, HR 112, Temp 100 in clinic. Patient admitted under observation status initially for further workup including CXR, BC x 2, lactic acid, sputum culture and UA. Patient started on broad spectrum antibiotics of vancomycin and rocephin. CXR indicated cardiomegaly with central vascular congestion. R lung with patchy areas of parenchymal opacification, interstitial thickening of the R lung base suggestive of pneumonia. Lactic acid 1.3. UA indicated reji urine, protein > 100, moderate urinary bilirubin and > 8.0 urobilinogen. BNP 165. CRP > 11.0. Hospital course: 06/11/21: Patient reports he is feeling somewhat better this morning, he is not as weak and short of breath. He reports diarrhea this morning x 1. Patient states he was feeling SOB, particularly with activity the past few days. He has to elevate HOB to improve his breathing at home at baseline. He also has edema to his bilateral lower extremities. Lung sounds diminished with end expiratory wheeze. Regular heart rate and rhythm, no murmur appreciated. Bowel sounds +, abdomen soft, non-tender. +1 to +2 edema to BLE. Hemodynamically stable, afebrile, 92% on 2L. WBC 10.75 today (N 82.3%), Hgb 13.7, Plt 122. Na 138, K 3.3, BUN 15, Creatinine 0.85, Bili 3.0, Alk phos 142, CRP > 11.0, Albumin 1.95. BC x 2 pending. Will continue IV antibiotics while cultures are pending and plan to de-escalate treatment as clinically indicated. No echo on file, recommend echo on outpatient basis to evaluate for possible CHF due to central vascular congestion on CXR, mild elevation of BNP, SOB with exertion, orthopnea and edema of bilateral lower extremities. 06/12/21: Patient feeling better this morning, sitting up on sofa with his this am. Cough improved, continues to c/o wheezing and SOB though this is rather chronic for him. No diarrhea today. Lower extremity swelling. Lung s ounds diminished with rhonchi and wheeze, no crackles. Edema to BLE 1-2+. Hemodynamically acceptable, afebrile; continues to require supplemental O2, currently at 2L. WBC 6.91, Hgb 13.7, Plt 149. Na 138, K 4.2, BUN 14, Creatinine 0.85, Bili 1.2, Alk phos 143, CRP 42.9, Albumin 2.01. BC NGTD x 1 day. Lab refused specimen for sputum culture due to saliva not sputum. Patient drinking adequate oral fluids and concern for possible undiagnosed CHF, will stop gentle IVF today. Encouraged patient to elevate his lower extremities. Hospitalization problems and plan: # Pneumonia # Leukocytosis with neutrophilia, WBC improved to 10.75 today - Continue vancomycin IV BID per pharmacy dosing - Continue rocephin IV daily - BC x 2 NGTD x 1 day - Sputum culture specimen refused - saliva not sputum - Repeat CBC in am # COPD # Elevated CRP, 42.9 today - Continue duonebs BID, albuterol inhaler PRN - Continue solumedrol 40mg IV Q8H - PO steroid taper upon DC home - Incentive spirometry 10x/hr while awake - 750ml this am - Repeat CRP in am # Hypokalemia, resolved. 4.2 today - Repeat CMP in am # Hypoalbuminemia, albumin 2.01 - Start dietary protein supplements Chronic, stable conditions: # HTN - continue losartan 100mg PO daily (Hold for BP < 100/60) # HLD - takes omega 3 1000mg PO daily # Prostate CA # BPH with nocturia # GERD - takes omeprazole 40mg PO daily # Erectile dysfunction Hospitalization details: # FEN: Stop IVF; oral fluids, electrolytes stable, regular diet # PPX: Ambulating, continue PPI # Code status: FULL CODE # Emergency contact: Marie [phone] # Disposition: Will plan to continue inpatient status today as patient continues to require supplemental O2 and blood cultures pending; will plan to de-escalate IV antibiotics if cultures negative x 2 days. Possible discharge home in next 1-2 days based on clinical course. - Echocardiogram on outpatient basis to evaluate for CHF
[2021-06-12] MEDS: cefTRIAXone 2 GM Vial IVPUSH SCH (10:19)
[2021-06-12] MEDS: Albuterol/Ipratropium 3.0-0.5 MG/3 ML Neb Soln INH SCH (20:19)
[2021-06-13] MEDS: methylPREDNISolone Sodium Succinate 125 MG/2 ML SDV IVPUSH SCH ×2 (00:55→08:39)
[2021-06-13] MEDS: OMEPRAZOLE 40 MG PO SCH (07:42)
[2021-06-13 08:03] LABS: ANION GAP 12.6 mmol/L (5-15); CHLORIDE,CL 103 mmol/L (98-107); SODIUM,NA 141 mmol/L (136-145)
[2021-06-13] MEDS: Aspirin 81 MG Tab.EC PO SCH (08:33)
[2021-06-13] MEDS: Fish Oil/Omega-3 Fatty Acids 1 Gm Cap PO SCH (08:33)
[2021-06-13] MEDS: Albuterol/Ipratropium 3.0-0.5 MG/3 ML Neb Soln INH SCH (08:42)
[2021-06-13] MEDS ORDERED: Losartan 50 MG Tab PO SCH (09:00)
[2021-06-13] MEDS: Triamcinolone Acetonide 0.1% Crm 15 GM Tube TOP SCH (09:13)
[2021-06-13] MEDS ORDERED: Furosemide 40 MG/4 ML VIAL IVPUSH ONE (10:00)
[2021-06-13] MEDS: cefTRIAXone 2 GM Vial IVPUSH SCH (10:27)
--- NOTE | 2021-06-13 10:27 | PCM.DCSUM1 ---
Discharge Summary - Hospital Course Free Text/Narrative:: Date of admission: 06/10/21 Date of discharge: 06/13/21 Admission diagnoses: # Pneumonia # Leukocytosis with neutrophilia # COPD # Elevated BNP # Dependent edema of bilateral lower extremities # Elevated LFT's # Elevated CRP # Hypokalemia, resolved. # Hypoalbuminemia Discharge diagnoses: # HTN - continue losartan 100mg PO daily (Hold for BP < 100/60) # Elevated BNP, lower extremity edema, orthopnea, SOB - highly suspicious of undiagnosed CHF - echo next week as scheduled 06/18/21; continue teds # Elevated CRP, cough, wheezing, SOB - Pulmonary function testing planned - suspect undiagnosed COPD - consider maintenance medication such as Advair - continue duonebs and albuterol inhaler # HLD - takes omega 3 1000mg PO daily - Repeat lipid panel on follow-up # Prostate CA # BPH with nocturia # GERD - continue omeprazole 40mg PO daily # Erectile dysfunction HPI summary: Mt is an 80yM patient who was seen in the [facility] by Dr Goode yesterday for c/o SOB,"dark"urine and generalized weakness. Per , patient had not been himself since the last 4 to 5 days. She noticed the patient seemed confused at times. Patient noticed his urine was dark on Thursday and had 2 episodes of incontinence. Temperature at home was normal. Patient has a history of COPD and has some SOB but has worsening shortness of breath since the last 4 to 5 days. Patient reports generalized weakness since that time. Patient has a chronic cough and has been bringing up white phlegm. Patient's reports that he has not consumed a beer since last 06/05/2021. Patient denies chest pain, palpitations, lightheadedness, nausea, vomiting, abdominal pain, diarrhea, dysuria, frequency, urgency. WBC was found to be elevated at 15.9 with neutrophilia. BP 100/66, HR 112, Temp 100 in clinic. Patient admitted under observation status initially for further workup including CXR, BC x 2, lactic acid, sputum culture and UA. Patient started on broad spectrum antibiotics of vancomycin and rocephin. CXR indicated cardiomegaly with central vascular congestion. R lung with patchy areas of parenchymal opacification, interstitial thickening of the R lung base suggestive of pneumonia. Lactic acid 1.3. UA indicated reji urine, protein > 100, moderate urinary bilirubin and > 8.0 urobilinogen. BNP 165. CRP > 11.0. Hospital course: 06/11/21: Patient reports he is feeling somewhat better this morning, he is not as weak and short of breath. He reports diarrhea this morning x 1. Patient states he was feeling SOB, particularly with activity the past few days. He has to elevate HOB to improve his breathing at home at baseline. He also has edema to his bilateral lower extremities. Lung sounds diminished with end expiratory wheeze. Regular heart rate and rhythm, no murmur appreciated. Bowel sounds +, abdomen soft, non-tender. +1 to +2 edema to BLE. Hemodynamically stable, afebrile, 92% on 2L. WBC 10.75 today (N 82.3%), Hgb 13.7, Plt 122. Na 138, K 3.3, BUN 15, Creatinine 0.85, Bili 3.0, Alk phos 142, CRP > 11.0, Albumin 1.95. BC x 2 pending. Will continue IV antibiotics while cultures are pending and plan to de-escalate treatment as clinically indicated. No echo on file, recommend echo on outpatient basis to evaluate for possible CHF due to central vascular congestion on CXR, mild elevation of BNP, SOB with exertion, orthopnea and edema of bilateral lower extremities. 06/12/21: Patient feeling better this morning, sitting up on sofa with his this am. Cough improved, continues to c/o wheezing and SOB though this is rather chronic for him. No diarrhea today. Lower extremity swelling. Lung sounds diminished with rhonchi and wheeze, no crackles. Edema to BLE 1-2+. Hemodynamically acceptable, afebrile; continues to require supplemental O2, currently at 2L. WBC 6.91, Hgb 13.7, Plt 149. Na 138, K 4.2, BUN 14, Creatinine 0.85, Bili 1.2, Alk phos 143, CRP 42.9, Albumin 2.01. BC NGTD x 1 day. Lab refused specimen for sputum culture due to saliva not sputum. Patient drinking adequate oral fluids and concern for possible undiagnosed CHF, will stop gentle IVF today. Encouraged patient to elevate his lower extremities. 06/13/21: Patient reports his breathing has improved this morning. Cough, wheezing, SOB at baseline. His legs remain swollen this morning despite attempts to elevate his legs. IS to 1750ml. Mild crackling to bilateral bases noted on auscultation this am. HR regular rate and rhythm, no murmur appreciated. Lower extremities edematous 2-3+ edema bilaterally. BP increased from yesterday, HR 85, remains afebrile, 92% on 1L NC. Patient experienced decreased oxygen saturation with activity on room air yesterday of 84% per nursing. Patient will need to discharge on home oxygen. WBC 7.78, Hgb 13.8, Plt 202. Na 141, K 4.4, BUN 12, Creatinine 0.78, AST 69, ALT 102, Bili 0.9, Alk phos 136, CRP 9.5. BNP 395. Highly suspicious of vascular and hepatic congestion due to undiagnosed CHF. Patient to be given lasix 40mg IV today prior to discharge and will start low dose PO lasix daily at home starting tomorrow. Full 7 day course of antibiotics to be completed after discharge with augmentin starting tomorrow 06/14. Will plan to taper steroids after IV solumedrol given during hospitalization. Discharge and follow-up recommendations: - Discharge to home per self care with home oxygen per [facility] at 2L to maintain O2 sat > 90% - New medications at discharge: 1. Augmentin 875/125mg PO BID x 3 days starting Thursday 06/14 as IV rocephin given this am prior to discharge 2. Prednisone 10mg tablets - tapering dose as prescribed starting this afternoon: 40mg daily x 2 days, 30mg daily x 2 days, 20mg daily x 2 days, 10mg daily x 2 days, then stop 3. Lasix 20mg PO daily - Follow-up at [facility] on Thursday, Jun [address] Donovan at 11:00. Echocardiogram scheduled prior to office visit at 10:00. - Patient scheduled for PFT's in [facility] to evaluate for COPD - Patient to continue elevating his lower extremities and wear verona hose for lower extremity edema - Continue incentive spirometry 10x/hr while awake - Discharge Data Discharge Date: 06/13/21 Discharge Disposition: Home, Self-Care 01 Condition: Good - Referral to Home Health Primary Care Physician: Zion Goode MD - Patient Instructions Diet: Heart Healthy Diet Showering/Bathing: May Shower Other/Special Instructions: - Continue incentive spirometry 10x/hr while awake. - Orders have been placed for pulmonary function testing in [facility] - they will call to schedule from [facility]. - Elevate your legs as much as possible. - Wear verona hose to decrease swelling in the legs. - Continue drinking ensure protein drinks twice daily for low blood protein - Discharge Plan *PRESCRIPTION DRUG MONITORING PROGRAM REVIEWED*: Not Applicable *COPY OF PRESCRIPTION DRUG MONITORING REPORT IN PATIENT JOSÉ MANUEL: Not Applicable Home Medications: Home Meds Aspirin [Adult Low Dose Aspirin EC] 81 mg PO DAILY 04/04/14 [History] Fish Oil/Callao-3 Fatty Acids [Fish Oil 1,000 MG] 1 each PO DAILY 04/04/14 [History] Losartan [Cozaar] 100 mg PO DAILY 04/04/14 [History] Multivit with Minerals/Lutein [Vision Plus Lutein Vitamin] 1 each PO DAILY 04/04/14 [History] Multivitamin with Minerals [Multiple Vitamin] 1 tab PO DAILY 04/04/14 [History] Albuterol/Ipratropium [DuoNeb 3.0-0.5 MG/3 ML] 3 ml INH BID 09/06/19 [History] Albuterol [Ventolin HFA] 1 - 2 puff INH Q6H PRN 06/10/21 [History] Omeprazole 40 mg PO ACBREAKFAST 06/10/21 [History] Triamcinolone Acetonide [Triamcinolone Acetonide 0.1% Crm] 1 applic TOP BID 06/10/21 [History] Albuterol [Ventolin HFA] 2 puff INH Q4H PRN inhaler 06/13/21 [Rx] Amoxicillin/Clavulanate K [Augmentin 875-125 MG] 1 tab PO Q12HR tablet 06/13/21 [Rx] Furosemide [Lasix] 20 mg PO DAILY tablet 06/13/21 [Rx] predniSONE 40 mg PO .Daily Taper tablet 06/13/21 [Rx] Oxygen Therapy Mode: Nasal Cannula Oxygen Flow Rate (L/min): 2 Maintain SpO2% greater than: 90 Referrals: Zion Goode MD [Primary Care Provider] - 06/18/21 11:00 am (Follow up at [facility] with Dr Donovan on 06/18/21 at 11:00. Echocardiogram scheduled at 10:00 prior to clinic visit on 06/18/21 ) - Discharge Summary/Plan Comment DC Time >30 min.: Yes Total # of Minutes for Discharge Time: 40 - General Info Date of Service: 06/13/21 Functional Status: Reports: Pain Controlled, Tolerating Diet, Ambulating, Urinating, Incentive Spirometry (1750ml). Denies: New Symptoms - Review of Systems General: Reports: No Symptoms HEENT: Reports: No Symptoms Pulmonary: Reports: Shortness of Breath, Cough, Sputum, Wheezing Cardiovascular: Reports: Dyspnea on Exertion, Orthopnea, Edema. Denies: Chest Pain, Palpitations Gastrointestinal: Reports: No Symptoms Genitourinary: Reports: No Symptoms Musculoskeletal: Reports: No Symptoms Skin: Reports: No Symptoms Neurological: Reports: No Symptoms Psychiatric: Reports: No Symptoms - Patient Data Vitals - Most Recent: Last Vital Signs Temp 97.5 F 06/13/21 05:25 Pulse 86 06/13/21 08:42 Resp 20 06/13/21 05:25 BP 133/64 06/13/21 08:35 Pulse Ox 91 L 06/13/21 08:42 Weight - Most Recent: 217 lb 4.8 oz I&O - Last 24 hours: Intake & Output 06/12/21 06/13/21 06/13/21 22:59 06:59 14:59 Intake Total 917 350 Balance 917 350 Lab Results - Last 24 hrs: Laboratory Results - last 24 hr 06/12/21 06/13/21 06/13/21 Range/Units 12:05 07:05 07:05 WBC 7.78 (5.00-10.00) 10^3/uL RBC 4.60 (4.50-6.00) 10^6/uL Hgb 13.8 (13.0-17.0) g/dL Hct 42.9 (40.0-52.0) % MCV 93.3 H (82.0-92.0) fL MCH 30.0 (27.0-31.0) pg MCHC 32.2 (32.0-36.0) g/dL RDW 13.0 (11.5-14.5) % Plt Count 202 (150-400) 10^3/uL MPV 9.3 (7.4-10.4) fL Immature Gran % (Auto) 1.5 (0.0-5.0) % Neut % (Auto) 84.4 H (50.0-70.0) % Lymph % (Auto) 8.7 L (20.0-40.0) % [place] % (Auto) 5.3 (2.0-8.0) % Eos % (Auto) 0.0 L (1.0-3.0) % Baso % (Auto) 0.1 (0.0-1.0) % Neut # (Auto) 6.56 (2.50-7.00) 10^3/uL Lymph # (Auto) 0.68 L (1.00-4.00) 10^3/uL [place] # (Auto) 0.41 (0.10-0.80) 10^3/uL Eos # (Auto) 0.00 L (0.10-0.30) 10^3/uL Baso # (Auto) 0.01 (0.00-0.10) 10^3/uL Immature Gran # (Auto) 0.12 (0.00-0.50) 10^3/uL Sodium 141 (136-145) mmol/L Potassium 4.4 (3.5-5.1) mmol/L Chloride 103 (98-107) mmol/L Carbon Dioxide 29.8 (21.0-32.0) mmol/L Anion Gap 12.6 (5-15) mmol/L BUN 12 (7-18) mg/dL Creatinine 0.78 (0.51-1.17) mg/dL Est Cr Clr Drug Dosing 71.86 mL/min Estimated GFR (MDRD) > 60 mL/min Glucose 140 (70-140) mg/dL Calcium 8.9 (8.7-10.3) mg/dL Total Bilirubin 0.9 (0.2-1.0) mg/dL AST 69 H (15-37) U/L ALT 102 H (14-63) U/L Alkaline Phosphatase 136 H (46-116) U/L C-Reactive Protein 9.5 H (0.0-0.9) mg/dL B-Natriuretic Peptide (0-100) pg/mL Total Protein 6.7 (6.4-8.2) g/dL Albumin 2.06 L (3.40-5.00) g/dL Vancomycin Trough 18.8 (18.0-26.0) ug/mL 06/13/21 Range/Units 07:05 WBC (5.00-10.00) 10^3/uL RBC (4.50-6.00) 10^6/uL Hgb (13.0-17.0) g/dL Hct (40.0-52.0) % MCV (82.0-92.0) fL MCH (27.0-31.0) pg MCHC (32.0-36.0) g/dL RDW (11.5-14.5) % Plt Count (150-400) 10^3/uL MPV (7.4-10.4) fL Immature Gran % (Auto) (0.0-5.0) % Neut % (Auto) (50.0-70.0) % Lymph % (Auto) (20.0-40.0) % [place] % (Auto) (2.0-8.0) % Eos % (Auto) (1.0-3.0) % Baso % (Auto) (0.0-1.0) % Neut # (Auto) (2.50-7.00) 10^3/uL Lymph # (Auto) (1.00-4.00) 10^3/uL [place] # (Auto) (0.10-0.80) 10^3/uL Eos # (Auto) (0.10-0.30) 10^3/uL Baso # (Auto) (0.00-0.10) 10^3/uL Immature Gran # (Auto) (0.00-0.50) 10^3/uL Sodium (136-145) mmol/L Potassium (3.5-5.1) mmol/L Chloride (98-107) mmol/L Carbon Dioxide (21.0-32.0) mmol/L Anion Gap (5-15) mmol/L BUN (7-18) mg/dL Creatinine (0.51-1.17) mg/dL Est Cr Clr Drug Dosing mL/min Estimated GFR (MDRD) mL/min Glucose (70-140) mg/dL Calcium (8.7-10.3) mg/dL Total Bilirubin (0.2-1.0) mg/dL AST (15-37) U/L ALT (14-63) U/L Alkaline Phosphatase (46-116) U/L C-Reactive Protein (0.0-0.9) mg/dL B-Natriuretic Peptide 395 H (0-100) pg/mL Total Protein (6.4-8.2) g/dL Albumin (3.40-5.00) g/dL Vancomycin Trough (18.0-26.0) ug/mL [facility] Results - Last 24 hrs: Microbiology 06/10/21 11:50 Aerobic Blood Culture - Preliminary Blood - Venous - Lab Draw NO GROWTH AFTER 2 DAYS Anaerobic Blood Culture - Preliminary NO GROWTH AFTER 2 DAYS 06/10/21 11:35 Aerobic Blood Culture - Preliminary Blood - Venous NO GROWTH AFTER 2 DAYS Anaerobic Blood Culture - Preliminary NO GROWTH AFTER 2 DAYS Med Orders - Current: Current Medications Albuterol (Albuterol 8 Gm Inhaler) 0 gm INH Q4H PRN PRN Reason: Shortness of Breath Albuterol/Ipratropium (Albuterol/Ipratropium 3.0-0.5 Mg/3 Ml Neb Soln) 3 ml INH BID [facility] Last Admin: 06/13/21 08:42 Dose: 3 ml Documented by: Aspirin (Aspirin 81 Mg Tab.Ec) 81 mg PO DAILY [facility] Last Admin: 06/13/21 08:33 Dose: 81 mg Documented by: Ceftriaxone Sodium (Ceftriaxone 2 Gm Vial) 2 gm IVPUSH Q24H [facility] Last Admin: 06/12/21 10:19 Dose: 2 gm Documented by: Fish Oil (Fish Oil/Callao-3 Fatty Acids 1 Gm Cap) 1 gm PO DAILY [facility] Last Admin: 06/13/21 08:33 Dose: 1 gm Documented by: Losartan Potassium (Losartan 50 Mg Tab) 100 mg PO DAILY [facility] Last Admin: 06/13/21 08:35 Dose: 100 mg Documented by: Menthol (Menthol 7.6 Mg Sugar Free Lozenge) 1 kiko PO ASDIRECTED PRN PRN Reason: Cough Methylprednisolone Sodium Succinate (Methylprednisolone Sodium Succinate 125 Mg/2 Ml Sdv) 40 mg IVPUSH Q8H [facility] Last Admin: 06/13/21 08:39 Dose: 40 mg Documented by: Omeprazole 40mg (Capsule - Ptom) 1 each PO ACBREAKFAST [facility] Last Admin: 06/13/21 07:42 Dose: 1 each Documented by: Sodium Chloride (Sodium Chloride 0.9% 10 Ml Syringe) 10 ml FLUSH Q8HR PRN PRN Reason: keep vein open Last Admin: 06/12/21 02:09 Dose: 10 ml Documented by: Triamcinolone Acetonide (Triamcinolone Acetonide 0.1% Crm 15 Gm Tube) 0 gm TOP BID [facility] Last Admin: 06/13/21 09:13 Dose: 1 applic Documented by: Discontinued Medications Albuterol (Albuterol 8 Gm Inhaler) 0 gm INH Q6H PRN PRN Reason: Shortness of Breath Albuterol/Ipratropium (Albuterol/Ipratropium 3.0-0.5 Mg/3 Ml Neb Soln - Ptom) 3 ml INH BIDRT [facility] Last Admin: 06/10/21 19:35 Dose: 3 ml Documented by: Albuterol/Ipratropium (Albuterol/Ipratropium 3.0-0.5 Mg/3 Ml Neb Soln - Ptom) 3 ml INH BID [facility] Last Admin: 06/12/21 08:47 Dose: 3 ml Documented by: Albuterol/Ipratropium (Albuterol/Ipratropium 3.0-0.5 Mg/3 Ml Neb Soln) Confirm Administered Dose 3 ml .ROUTE .STK-MED ONE Stop: 06/11/21 20:04 Last Admin: 06/11/21 20:15 Dose: Not Given Documented by: Furosemide (Furosemide 40 Mg/4 Ml Vial) 40 mg IVPUSH NOW ONE Stop: 06/13/21 10:01 Vancomycin HCl 1.25 gm/ Sodium (Chloride) 250 mls @ 125 mls/hr IV Q12H [facility] Last Admin: 06/11/21 23:42 Dose: 125 mls/hr Documented by: Sodium Chloride (Normal Saline) 1,000 mls @ 999 mls/hr IV .BOLUS ONE Stop: 06/10/21 13:37 Last Infusion: 06/10/21 16:30 Dose: 100 mls/hr Documented by: Sodium Chloride (Normal Saline) 1,000 mls @ 100 mls/hr IV ASDIRECTED [facility] Last Admin: 06/10/21 23:38 Dose: 100 mls/hr Documented by: Sodium Chloride (Normal Saline) 1,000 mls @ 50 mls/hr IV ASDIRECTED [facility] Last Admin: 06/11/21 18:25 Dose: 50 mls/hr Documented by: Losartan 100mg (Tablet - Ptom) 1 each PO DAILY [facility] Last Admin: 06/12/21 08:05 Dose: 1 each Documented by: Potassium Chloride (Potassium Chloride 20 Meq Tab.Er) 20 meq PO ONETIME ONE Stop: 06/11/21 09:24 Last Admin: 06/11/21 10:32 Dose: 20 meq Documented by: - Exam Quality Assessment: Reports: Supplemental Oxygen General: Reports: Alert, Oriented, Cooperative, No Acute Distress HEENT: Reports: Pupils Equal, Pupils Reactive, Mucous Membr. Moist/[address] Neck: Reports: Supple, Trachea Midline Lungs: Reports: Decreased Breath Sounds, Crackles (bilateral bases ), Wheezing Cardiovascular: Reports: Regular Rate, Regular Rhythm, No Murmurs GI/Abdominal Exam: Normal Bowel Sounds, Soft, Non-Tender, No Distention (Male) Exam: Deferred Rectal (Males) Exam: Deferred Back Exam: Reports: Normal Inspection, Full Range of Motion Extremities: Normal Inspection, Normal Range of Motion, Non-Tender, Normal Capillary Refill, Pedal Edema (2-3+ bilaterally ) Skin: Reports: Warm, Dry, Intact Neurological: Reports: No New Focal Deficit Psy/Mental Status: Reports: Alert, Normal Affect, Normal Mood
[2021-06-13] MEDS ORDERED: predniSONE 10 MG Tab PO SCH (14:00)
[2021-06-14] MEDS ORDERED: Furosemide 20 MG Tab PO SCH (09:00)
[2021-06-14] MEDS ORDERED: Amoxicillin/Clavulanate K 875-125 MG Tab PO SCH (10:30)
== END 2021-06-13 12:30 | disposition home or self-care (01) | DRG 871 ==
LOC: KA.MS 10:10 → OBSVTOIN 15:32
PROVIDERS: ADMIT Student in an Organized Health Care Education/Training Program; ATTEND Nurse Practitioner Family
DX: A41.89 Other specified sepsis (principal); J18.9 Pneumonia, unspecified organism; J44.0 Chronic obstructive pulmonary disease with (acute) lower respiratory infection; D72.0 Genetic anomalies of leukocytes; E87.6 Hypokalemia; B99.9 Unspecified infectious disease; E88.09 Other disorders of plasma-protein metabolism, not elsewhere classified; N40.1 Benign prostatic hyperplasia with lower urinary tract symptoms; C61 Malignant neoplasm of prostate; R35.1 Nocturia; K21.9 Gastro-esophageal reflux disease without esophagitis; I11.0 Hypertensive heart disease with heart failure; Z20.822 Contact with and (suspected) exposure to COVID-19; I50.9 Heart failure, unspecified; E78.5 Hyperlipidemia, unspecified; N52.9 Male erectile dysfunction, unspecified; Z79.899 Other long term (current) drug therapy; I10 Essential (primary) hypertension; Z79.82 Long term (current) use of aspirin; Z85.828 Personal history of other malignant neoplasm of skin; Z79.52 Long term (current) use of systemic steroids; Z90.49 Acquired absence of other specified parts of digestive tract; Z87.891 Personal history of nicotine dependence
CPT/HCPCS: 36415; 71046; 80053; 80202; 81001; 83605; 83880; 85025; 86140; 87040; 87070; 87205; 94640; A9270-GY; J0696; J1940; J2930; J3370; J7030; J7050; J7620-GY; U0002

== ENCOUNTER 2021-11-10 08:45 | Inpatient (IN) | payer MEDICARE, OTHER ==
[2021-11-10] MEDS: Dexamethasone 10 MG/ML SDV IVPUSH ONE (09:39)
[2021-11-10 09:45] LABS: CHLORIDE,CL 95 mmol/L (98-107); SODIUM,NA 136 mmol/L (136-145)
[2021-11-10] MEDS: Sodium Chloride 0.9% 100 ML IV SCH (10:44)
[2021-11-10] MEDS: Iopamidol 755 Mg/ML 75 ML Bottle IVPUSH ONE (10:44)
[2021-11-10] MEDS: cefTRIAXone 1 GM Vial IVPUSH ONE (11:28)
[2021-11-10] MEDS: Sodium Chloride 0.9% 10 ML Syringe FLUSH PRN (11:42)
[2021-11-10] MEDS: Enoxaparin 40 MG/0.4 ML Syringe SUBCUT SCH (12:40)
[2021-11-10] MEDS: Azithromycin 500 MG in Sodium Chloride 0.9% 250 ML IV ONE (12:53)
[2021-11-10] MEDS: Sodium Chloride 0.9% 1,000 ML IV ONE (14:20)
[2021-11-10] MEDS: Midazolam 1 MG/ML 2 ML SDV IVPUSH SCH ×2 (14:35→14:49)
[2021-11-10 18:25] VITALS: BP 158/80
[2021-11-10 18:34] VITALS: PULSE 96
== END 2021-11-10 15:50 | DRG 177 ==
LOC: KA.ED 08:45 → UNDOADMIN 11:26 → KA.MS 11:26 → UNDODISIN 15:50
PROVIDERS: ADMIT Nurse Practitioner Family; ATTEND Nurse Practitioner Family
PROC: 3E0333Z Introduction of Anti-inflammatory into Peripheral Vein, Percutaneous Approach (ICD-10-PCS; principal; 2021-11-10)
PROC: 0BH17EZ Insertion of Endotracheal Airway into Trachea, Via Natural or Artificial Opening (ICD-10-PCS; 2021-11-10)
DX: U07.1 COVID-19 (principal); J18.9 Pneumonia, unspecified organism; R09.02 Hypoxemia; J96.01 Acute respiratory failure with hypoxia; H35.30 Unspecified macular degeneration; I10 Essential (primary) hypertension; J12.82 Pneumonia due to coronavirus disease 2019; J44.0 Chronic obstructive pulmonary disease with (acute) lower respiratory infection; N42.9 Disorder of prostate, unspecified; I50.32 Chronic diastolic (congestive) heart failure; E88.09 Other disorders of plasma-protein metabolism, not elsewhere classified; N40.1 Benign prostatic hyperplasia with lower urinary tract symptoms; R35.1 Nocturia; K21.9 Gastro-esophageal reflux disease without esophagitis; N52.9 Male erectile dysfunction, unspecified; H54.7 Unspecified visual loss; E66.9 Obesity, unspecified; K76.0 Fatty (change of) liver, not elsewhere classified; R79.1 Abnormal coagulation profile; R77.8 Other specified abnormalities of plasma proteins; R19.00 Intra-abdominal and pelvic swelling, mass and lump, unspecified site; R59.0 Localized enlarged lymph nodes; I11.0 Hypertensive heart disease with heart failure; Z68.32 Body mass index [BMI] 32.0-32.9, adult; Z79.82 Long term (current) use of aspirin; Z79.899 Other long term (current) drug therapy; Z90.49 Acquired absence of other specified parts of digestive tract; Z87.891 Personal history of nicotine dependence
CPT/HCPCS: 36415; 71045; 71275; 80053; 83605; 83735; 83880; 85025; 85379; 86140; 87040 ×2; J1100; J3490; Q9967; 51702; 84484; 99284; J0456; J0696; J1650; J2250; J7030; J7050

== ENCOUNTER 2021-11-18 08:48 | Inpatient (IN) | payer MEDICARE, OTHER ==
[2021-11-18] MEDS ORDERED: Albuterol 8 GM Inhaler INH PRN (15:43)
[2021-11-18] MEDS ORDERED: Albuterol/Ipratropium 3.0-0.5 MG/3 ML Neb Soln INH PRN (15:43)
[2021-11-18] MEDS: Enoxaparin 40 MG/0.4 ML Syringe SUBCUT SCH (16:12)
[2021-11-18] MEDS: Arformoterol 15 MCG/2 ML Neb Soln INH SCH (20:22)
[2021-11-19] MEDS: Enoxaparin 40 MG/0.4 ML Syringe SUBCUT SCH ×3 (02:14→20:42)
[2021-11-19] MEDS: Pantoprazole 40 MG Tab.CR PO SCH ×2 (06:25→06:32)
[2021-11-19] MEDS: Furosemide 20 MG Tab PO SCH (08:45)
[2021-11-19] MEDS: Fish Oil/Omega-3 Fatty Acids 1 Gm Cap PO SCH (08:45)
[2021-11-19] MEDS: Aspirin 81 MG Tab.Chew PO SCH (08:45)
[2021-11-19] MEDS: Arformoterol 15 MCG/2 ML Neb Soln INH SCH ×2 (08:45→20:42)
[2021-11-19] MEDS: Multivitamins with Minerals/Iron/Folic Acid/Lycopene Tab PO SCH (08:46)
[2021-11-19] MEDS: Lutein/Minerals/Vitamins A, C & E Tab PO SCH (08:46)
[2021-11-19] MEDS: Losartan 50 MG Tab PO SCH (08:47)
[2021-11-19] MEDS ORDERED: Dexamethasone 4 MG Tab PO SCH (09:00)
[2021-11-19] MEDS: Metoprolol Succinate 25 MG Tab.ER PO SCH (12:14)
[2021-11-19] MEDS: Revefenacin 175 MCG/3 ML Neb Soln INH SCH (13:24)
[2021-11-20] MEDS: Pantoprazole 40 MG Tab.CR PO SCH ×2 (05:55→06:35)
[2021-11-20] MEDS: Arformoterol 15 MCG/2 ML Neb Soln INH SCH ×2 (08:46→20:38)
[2021-11-20] MEDS: Lutein/Minerals/Vitamins A, C & E Tab PO SCH (09:25)
[2021-11-20] MEDS: Aspirin 81 MG Tab.Chew PO SCH (09:25)
[2021-11-20] MEDS: Furosemide 20 MG Tab PO SCH (09:25)
[2021-11-20] MEDS: Losartan 50 MG Tab PO SCH (09:25)
[2021-11-20] MEDS: Multivitamins with Minerals/Iron/Folic Acid/Lycopene Tab PO SCH (09:25)
[2021-11-20] MEDS: Fish Oil/Omega-3 Fatty Acids 1 Gm Cap PO SCH (09:25)
[2021-11-20] MEDS: Metoprolol Succinate 25 MG Tab.ER PO SCH (09:26)
[2021-11-20] MEDS: Enoxaparin 40 MG/0.4 ML Syringe SUBCUT SCH ×2 (09:31→20:38)
[2021-11-20] MEDS: Revefenacin 175 MCG/3 ML Neb Soln INH SCH (10:10)
[2021-11-21] MEDS: Pantoprazole 40 MG Tab.CR PO SCH ×2 (05:52→06:31)
[2021-11-21] MEDS: Enoxaparin 40 MG/0.4 ML Syringe SUBCUT SCH ×2 (08:14→20:03)
[2021-11-21] MEDS: Losartan 50 MG Tab PO SCH (08:14)
[2021-11-21] MEDS: Furosemide 20 MG Tab PO SCH (08:15)
[2021-11-21] MEDS: Multivitamins with Minerals/Iron/Folic Acid/Lycopene Tab PO SCH (08:15)
[2021-11-21] MEDS: Fish Oil/Omega-3 Fatty Acids 1 Gm Cap PO SCH (08:15)
[2021-11-21] MEDS: Lutein/Minerals/Vitamins A, C & E Tab PO SCH (08:15)
[2021-11-21] MEDS: Metoprolol Succinate 25 MG Tab.ER PO SCH (08:15)
[2021-11-21] MEDS: Aspirin 81 MG Tab.Chew PO SCH (08:15)
[2021-11-21] MEDS: Arformoterol 15 MCG/2 ML Neb Soln INH SCH ×2 (09:00→20:03)
[2021-11-21] MEDS: Revefenacin 175 MCG/3 ML Neb Soln INH SCH (09:59)
[2021-11-22] MEDS: Pantoprazole 40 MG Tab.CR PO SCH ×2 (05:42→06:31)
[2021-11-22] MEDS: Multivitamins with Minerals/Iron/Folic Acid/Lycopene Tab PO SCH (08:33)
[2021-11-22] MEDS: Losartan 50 MG Tab PO SCH (08:33)
[2021-11-22] MEDS: Aspirin 81 MG Tab.Chew PO SCH (08:33)
[2021-11-22] MEDS: Furosemide 20 MG Tab PO SCH (08:33)
[2021-11-22] MEDS: Fish Oil/Omega-3 Fatty Acids 1 Gm Cap PO SCH (08:33)
[2021-11-22] MEDS: Lutein/Minerals/Vitamins A, C & E Tab PO SCH (08:34)
[2021-11-22] MEDS: Arformoterol 15 MCG/2 ML Neb Soln INH SCH (08:48)
[2021-11-22] MEDS: Revefenacin 175 MCG/3 ML Neb Soln INH SCH (09:56)
[2021-11-22] MEDS: Enoxaparin 40 MG/0.4 ML Syringe SUBCUT SCH (10:08)
[2021-11-22] MEDS: Metoprolol Succinate 25 MG Tab.ER PO SCH (10:43)
== END 2021-11-22 14:15 | disposition home or self-care (01) | DRG 947 ==
LOC: KA.MS 14:17
PROVIDERS: ADMIT Nurse Practitioner Family; ATTEND Nurse Practitioner Family
PROC: 8E0ZXY6 Isolation (ICD-10-PCS; principal; 2021-11-18)
PROC: 3E0333Z Introduction of Anti-inflammatory into Peripheral Vein, Percutaneous Approach (ICD-10-PCS; 2021-11-19)
DX: R53.81 Other malaise (principal); J18.9 Pneumonia, unspecified organism; I21.A1 Myocardial infarction type 2; J44.1 Chronic obstructive pulmonary disease with (acute) exacerbation; I50.32 Chronic diastolic (congestive) heart failure; J44.0 Chronic obstructive pulmonary disease with (acute) lower respiratory infection; I25.10 Atherosclerotic heart disease of native coronary artery without angina pectoris; I11.0 Hypertensive heart disease with heart failure; E83.39 Other disorders of phosphorus metabolism; E88.09 Other disorders of plasma-protein metabolism, not elsewhere classified; E78.5 Hyperlipidemia, unspecified; C61 Malignant neoplasm of prostate; N40.1 Benign prostatic hyperplasia with lower urinary tract symptoms; R35.1 Nocturia; K44.9 Diaphragmatic hernia without obstruction or gangrene; K21.9 Gastro-esophageal reflux disease without esophagitis; N52.9 Male erectile dysfunction, unspecified; K42.9 Umbilical hernia without obstruction or gangrene; Z79.52 Long term (current) use of systemic steroids; Z79.899 Other long term (current) drug therapy; Z79.82 Long term (current) use of aspirin; Z79.2 Long term (current) use of antibiotics
CPT/HCPCS: 94640; 97110-GO; 97110-GP; 97161-GP; 97535-GO; A9270-GY; J1650; J8540